=== PATIENT | male | born 1990 | race Two or more races ===

== ENCOUNTER 2016-08-07 15:37 | Emergency (ER) | payer SELFPAY ==
[~2016-08-07] VITALS: Ht 180.3 cm; Wt 79.0 kg
[2016-08-07 15:58] VITALS: BP 128/72
== END 2016-08-07 19:00 | disposition left against medical advice (07) ==
LOC: EME 15:37
DX: M54.5 Low back pain (principal); V00.311A Fall from snowboard, initial encounter; Y93.23 Activity, snow (alpine) (downhill) skiing, snowboarding, sledding, tobogganing and snow tubing; Z53.21 Procedure and treatment not carried out due to patient leaving prior to being seen by health care provider

== ENCOUNTER 2017-08-18 03:29 | Emergency (ER) | payer BC ==
[~2017-08-18] VITALS: Ht 182.9 cm; Wt 77.9 kg
[2017-08-18 04:59] VITALS: BP 117/69
== END 2017-08-18 05:00 | disposition home or self-care (01) ==
LOC: EME 03:29
PROC: 09C1XZZ Extirpation of Matter from Left External Ear, External Approach (ICD-10-PCS; principal; 2017-08-18)
DX: H61.22 Impacted cerumen, left ear (principal)
CPT/HCPCS: 99281; 99283